=== PATIENT | male | born 1970 | race Caucasian/White ===

== ENCOUNTER 2017-02-13 15:50 | Emergency (ER) | payer OTHER ==
[~2017-02-13] VITALS: Ht 180.3 cm; Wt 90.5 kg
[2017-02-13 15:50] VITALS: BP 140/89; PULSE 67; RESP 16; TEMP 98.1; O2SAT 97
[~2017-02-13 15:50] MED LIST: ALPR.25 PO
[2017-02-13] MEDS ORDERED: SODIUM CHLOR 0.9% 1000 ML INJ 1,000 ML IV ONE (16:10)
[2017-02-13] MEDS ORDERED: SODIUM CHLORIDE 0.9% FLUSH 10 ML FLUSH IVF PRN (16:15)
[2017-02-13] MEDS ORDERED: METOCLOPRAMIDE HCL 10 MG/2 ML VIAL IVP ONE (16:15)
[2017-02-13] MEDS ORDERED: DEXAMETHASONE SOD PHOS 20 MG/5 ML VIAL IV PUSH ONE (16:15)
[2017-02-13] MEDS ORDERED: diphenhydrAMINE HCL 50 MG/ML VIAL IVP ONE (16:15)
--- NOTE | 2017-02-13 16:23 | PD ---
HPI Chief Complaint: Headache Time Seen by Provider: 15:56 Travel History International Travel<30 days: Yes Contact w/Intl Traveler<30days: Yes Name of Country Traveled to: [place] Traveled to known affect area: No History of Present Illness HPI Patient is a 46 year old male who presents to ER with complaints of headache. Patient reports that 2 days ago, he was on a cruise with his , reports that during the climax of intercourse he began to have a headache. Reports that during climax, he got diaphoretic and reports that his heart was racing, reports that it felt like his head exploded. Reports that symptoms lasted for about 15 minutes and then slowly resolved. Reports concern as he still "feels off." Patient reports that headache has nearly resolved since the episode 2 days ago. Denies vision changes. Denies n/v with symptoms. Patient currently is not on any anticoagulants at this time. Patient denies any history of intracranial hemorrhage, SAH, denies any medical history except for anxiety as well as intraocular migraines. No family history of subarachnoid hemorrhage, or intracranial hemorrhage. PFSH Past Medical History Anxiety: Yes (PTSD) Diminished Hearing: No Psychiatric: Yes (PTSD) Influenza Vaccination: No Past Surgical History Surgical History: No Previous Surgery Social History Alcohol Use: No Tobacco Use: No Substance Use: No Allergies-Medications (Allergen,Severity, Reaction): Coded Allergies: No Known Allergies (Unverified , 02/13/17) Reported Meds & Prescriptions Reported Meds & Active Scripts Active Review of Systems General / Constitutional: No: Fever Eyes: No: Visual changes HENT: No: Headaches Cardiovascular: No: Chest Pain or Discomfort Respiratory: No: Shortness of Breath Gastrointestinal: No: Abdominal Pain Genitourinary: No: Dysuria Musculoskeletal: No: Pain Skin: No Rash Neurologic: Positive: Headache, No: Weakness Psychiatric: No: Depression Endocrine: No: Polydipsia Hematologic/Lymphatic: No: Easy Bruising Physical Exam Narrative GENERAL: No acute distress, nontoxic SKIN: Focused skin assessment warm/dry. HEAD: Atraumatic. Normocephalic. EYES: Pupils equal and round. No scleral icterus. No injection or drainage. ENT: No nasal bleeding or discharge. Mucous membranes pink and moist. NECK: Trachea midline. No JVD. CARDIOVASCULAR: Regular rate and rhythm. No murmur appreciated. RESPIRATORY: No accessory muscle use. Clear to auscultation. Breath sounds equal bilaterally. GASTROINTESTINAL: Abdomen soft, non-tender, nondistended. Hepatic and splenic margins not palpable. MUSCULOSKELETAL: No obvious deformities. No clubbing. No cyanosis. No edema. NEUROLOGICAL: Awake and alert. No obvious cranial nerve deficits. Motor grossly within normal limits. Normal speech. Cranial nerves 2- 12 grossly intact with no neurological deficits PSYCHIATRIC: Appropriate mood and affect; insight and judgment normal. Data Data Last Documented VS Vital Signs Date Time Temp Pulse Resp B/P Pulse Ox O2 Delivery O2 Flow Rate FiO2 02/13/17 19:04 20 98 02/13/17 19:02 68 154/83 02/13/17 18:29 Room Air 02/13/17 15:50 98.1 Orders Complete Blood Count With Diff (02/13/17 16:10) Comprehensive Metabolic Panel (02/13/17 16:10) Prothrombin Time / Inr (Pt) (02/13/17 16:10) Act Partial Throm Time (Ptt) (02/13/17 16:10) Ct Brain W/O Iv Contrast(Rout) (02/13/17 16:10) Ecg Monitoring (02/13/17 16:10) Iv Access Insert/Monitor (02/13/17 16:10) Oximetry (02/13/17 16:10) Sodium Chloride 0.9% Flush (Ns Flush) (02/13/17 16:15) Sodium Chlor 0.9% 1000 Ml Inj (Ns 1000 M (02/13/17 16:10) Diphenhydramine Inj (Benadryl Inj) (02/13/17 16:15) Metoclopramide Inj (Reglan Inj) (02/13/17 16:15) Dexamethasone Inj (Decadron Inj) (02/13/17 16:15) Cta Brain W Iv Contrast W 3d (02/13/17 17:16) Cta Neck W Iv Contrast W 3d (02/13/17 17:16) Iohexol 350 Inj (Omnipaque 350 Inj) (02/13/17 17:48) Labs Laboratory Tests Test 02/13/17 16:20 White Blood Count 8.7 TH/MM3 Red Blood Count 5.79 MIL/MM3 Hemoglobin 16.8 GM/DL Hematocrit 48.5 % Mean Corpuscular Volume 83.7 FL Mean Corpuscular Hemoglobin 28.9 PG Mean Corpuscular Hemoglobin 34.6 % Concent Red Cell Distribution Width 12.4 % Platelet Count 248 TH/MM3 Mean Platelet Volume 7.3 FL Neutrophils (%) (Auto) 47.1 % Lymphocytes (%) (Auto) 41.7 % Monocytes (%) (Auto) 7.5 % Eosinophils (%) (Auto) 3.1 % Basophils (%) (Auto) 0.6 % Neutrophils # (Auto) 4.0 TH/MM3 Lymphocytes # (Auto) 3.6 TH/MM3 Monocytes # (Auto) 0.7 TH/MM3 Eosinophils # (Auto) 0.3 TH/MM3 Basophils # (Auto) 0.1 TH/MM3 CBC Comment DIFF FINAL Differential Comment Prothrombin Time 10.7 SEC Prothromb Time International 1.0 RATIO Ratio Activated Partial 27.3 SEC Thromboplast Time Sodium Level 140 MEQ/L Potassium Level 3.6 MEQ/L Chloride Level 104 MEQ/L Carbon Dioxide Level 29.1 MEQ/L Anion Gap 7 MEQ/L Blood Urea Nitrogen 15 MG/DL Creatinine 1.00 MG/DL Estimat Glomerular Filtration 81 ML/MIN Rate Random Glucose 119 MG/DL Calcium Level 9.3 MG/DL Total Bilirubin 0.5 MG/DL Aspartate Amino Transf 18 U/L (AST/SGOT) Alanine Aminotransferase 26 U/L (ALT/SGPT) Alkaline Phosphatase 92 U/L Total Protein 7.4 GM/DL Albumin 3.9 GM/DL [facility] Medical Decision Making Medical Screen Exam Complete: Yes Emergency Medical Condition: Yes Interpretation(s) Vital Signs Date Time Temp Pulse Resp B/P Pulse Ox O2 Delivery O2 Flow Rate FiO2 02/13/17 15:50 98.1 67 16 140/89 97 Differential Diagnosis Differential includes intracranial hemorrhage, migraine headache, cephalgia, electrolyte abnormality Narrative Course Patient is a 46-year-old male who presents to emergency room with complaints of headache. Reports that he had acute onset severe headache 2 days ago while climaxing during sexual intercourse. Patient reports that symptoms lasted 15 minutes and has improved, patient was told to go directly to the emergency room after he got [place] the cruise ship for evaluation. Patient with no neurological deficits at this time, patient is well-appearing. Patient with severe headache 2 days ago, CT head ordered to rule out intracranial hemorrhage. Vital Signs Date Time Temp Pulse Resp B/P Pulse Ox O2 Delivery O2 Flow Rate FiO2 7//17 19:04 20 98 02/13/17 19:02 68 20 154/83 97 02/13/17 18:29 64 18 144/74 95 Room Air 02/13/17 17:05 64 18 146/82 98 Room Air 02/13/17 16:24 18 98 Room Air 02/13/17 15:50 98.1 67 16 140/89 97 CBC & BMP Diagram 02/13/17 16:20 Last Impressions Head CTA 02/13/17 1716 Signed Impressions: Service Date/Time: February 17:28 - CONCLUSION: Stenotic right A1 segment with symmetric appearance to the A2 segments with patent intercommunicating artery. No aneurysm seen. Ever Denton MD Head CT 02/13/17 1610 Signed Impressions: Service Date/Time: February 16:22 - CONCLUSION: Normal examination for a patient of this age. Kunal Chan MD CTA of the neck: Moderate short segment narrowing of the origin of the left internal carotid artery with poststenotic dilation. The stenosis is calculated at 43%. Patient with no aneurysm is on CTs, he does have a narrowing of his left carotid artery. Copies of patient's CT report was given to him. Patient will follow-up with his primary care doctor and bring the copies of the CT report with him. Signs and symptoms of when to return to the emergency room was reviewed patient in detail. Diagnosis Primary Impression: Headache Qualified Code: R51 - Acute nonintractable headache, unspecified headache type Additional Impression: Internal carotid artery stenosis Patient Instructions: General Instructions Additional Instructions: Please follow up with your primary care doctor Please bring your radiology reports to your doctor's office for follow up on all findings Return to ER if symptoms worsen or progress Return to ER as needed Please bring the copy of your radiology reports to your doctor's office as you will need to have follow up on all incidental findings from today Disposition: 01 DISCHARGE HOME Condition: Stable Kimi Mendez DO Feb 13, 2017 16:23
[2017-02-13 16:24] VITALS: RESP 18; O2SAT 98
--- NOTE | 2017-02-13 16:41 | RADRPT ---
EXAM DATE/TIME: 02/13/2017 16:22 [facility] COMPARISON: No previous studies available for comparison. INDICATIONS : Cephalgia. RADIATION DOSE: 66.33 CTDIvol (mGy) MEDICAL HISTORY : None SURGICAL HISTORY : None. ENCOUNTER: Initial ACUITY: 2 days PAIN SCALE: 6/10 LOCATION: cranial TECHNIQUE: Multiple contiguous axial images were obtained of the head. Using automated exposure control and adj ustment of the mA and/or kV according to patient size, radiation dose was kept as low as reasonably a chievable to obtain optimal diagnostic quality images. DICOM format image data is available electro nically for review and comparison. FINDINGS: CEREBRUM: The ventricles are normal for age. No evidence of midline shift, mass lesion, hemorrhage or acute in farction. No extra-axial fluid collections are seen. POSTERIOR FOSSA: The cerebellum and brainstem are intact. The 4th ventricle is midline. The cerebellopontine angle i s unremarkable. EXTRACRANIAL: The visualized portion of the orbits is intact. SKULL: The calvaria is intact. No evidence of skull fracture. CONCLUSION: Normal examination for a patient of this age. Kunal Chan MD on February 13, 2017 at 16:38 Board Certified Radiologist. This report was verified electronically.
[2017-02-13 16:49] LABS: BASOPHIL # 0.1 TH/MM3 (0-0.2); BASOPHIL % 0.6 % (0.0-2.0); EOSINOPHIL # 0.3 TH/MM3 (0-0.4); EOSINOPHIL % 3.1 % (0.0-4.0); HEMATOCRIT 48.5 % (39.0-51.0); HEMO FLAGS DIFF FINAL; LYMPH % 41.7 % (9.0-44.0); LYMPHOCYTE # 3.6 TH/MM3 (1.0-4.8); MEAN CELL VOLUME 83.7 FL (80.0-100.0); MEAN CORPUSCULAR HEMOGLOBIN 28.9 PG (27.0-34.0); MEAN CORPUSCULAR HGB CONC 34.6 % (32.0-36.0); MONO % 7.5 % (0.0-8.0); NEUT % 47.1 % (16.0-70.0); PLATELET COUNT 248 TH/MM3 (150-450); RED BLOOD COUNT 5.79 MIL/MM3 (4.50-5.90); RED CELL DISTRIBUTION WIDTH 12.4 % (11.6-17.2); WHITE BLOOD COUNT 8.7 TH/MM3 (4.0-11.0)
[2017-02-13 16:50] LABS: CHLORIDE 104 MEQ/L (98-107); POTASSIUM 3.6 MEQ/L (3.5-5.1); SODIUM (NA) 140 MEQ/L (136-145)
[2017-02-13 16:54] LABS: ANION GAP 7 MEQ/L (5-15); BICARBONATE 29.1 MEQ/L (21.0-32.0); BLOOD UREA NITROGEN 15 MG/DL (7-18)
[2017-02-13 16:57] LABS: ALT (GPT) 26 U/L (12-78); AST (GOT) 18 U/L (15-37); GLOMERULAR FILTRATION RATE 81 ML/MIN (>89)
[2017-02-13 16:59] LABS: APTT (PATIENT) 27.3 SEC (24.3-30.1); PROTHROMBIN TIME - PATIENT 10.7 SEC (9.8-11.6); TOTAL BILIRUBIN ADULT 0.5 MG/DL (0.2-1.0)
[2017-02-13 17:00] LABS: ALKALINE PHOSPHATASE 92 U/L (45-117)
[2017-02-13 17:05] VITALS: BP 146/82; PULSE 64; RESP 18; O2SAT 98
[2017-02-13] MEDS ORDERED: IOHEXOL 350 MG/ML 10 ML VIAL (for RAD DIAG) IV ONE (17:48)
[2017-02-13 18:29] VITALS: BP 144/74; PULSE 64; RESP 18; O2SAT 95
[2017-02-13 19:02] VITALS: BP 154/83; PULSE 68; RESP 20; O2SAT 97
--- NOTE | 2017-02-13 19:16 | RADRPT ---
EXAM DATE/TIME: 02/13/2017 17:28 [facility] COMPARISON: No previous studies available for comparison. INDICATIONS : Cephalgia. Evaluate for aneurysm. IV CONTRAST: 85 cc Omnipaque 350 (iohexol) IV ; Cumulative dose for multiple exams. RADIATION DOSE: 42.25 CTDIvol (mGy) ; Combined studies MEDICAL HISTORY : None SURGICAL HISTORY : None. ENCOUNTER: Initial ACUITY: 2 days PAIN SCALE: 6/10 LOCATION: cranial TECHNIQUE: Volumetric scanning was performed using a multi-row detector CT scanner. The data was post processed with a variety of visualization algorithms including full volume maximum intensity projection, multi -planar sliding thin slab reformation, curved planar reformation, and surface rendering techniques. Using automated exposure control and adjustment of the mA and/or kV according to patient size, radiat ion dose was kept as low as reasonably achievable to obtain optimal diagnostic quality images. DICO M format image data is available electronically for review and comparison. FINDINGS: There is excellent visualization of the intracranial vessels. The internal carotid arteries are symm etric in size. The right A1 segment is narrowed, but flow is seen within. There is good flow in the anterior communicating artery. The A2 segments are symmetric. Middle cerebral artery branch vessel s are symmetric. The posterior circulation is intact. No evidence of aneurysm or vessel truncation. No flow is seen in either PCOM. CONCLUSION: Stenotic right A1 segment with symmetric appearance to the A2 segments with patent intercommunicating artery. No aneurysm seen. Ever Denton MD on February 13, 2017 at 19:04 Board Certified Radiologist. This report was verified electronically.
--- NOTE | 2017-02-13 19:20 | RADRPT ---
EXAM DATE/TIME: 02/13/2017 17:28 [facility] COMPARISON: No previous studies available for comparison. INDICATIONS : Cephalgia. Evaluate for aneurysm. IV CONTRAST: 85 cc Omnipaque 350 (iohexol) IV ; Cumulative dose for multiple exams. RADIATION DOSE: 42.25 CTDIvol (mGy) ; Combined studies MEDICAL HISTORY : None SURGICAL HISTORY : None. ENCOUNTER: Initial ACUITY: 2 days PAIN SCALE: 6/10 LOCATION: neck Elevated flow velocities and ICA/CCA ratios have been found to correlate with increased degrees of vessel stenosis, calculated as percentage of diameter relative to a normal segment of distal ICA/CCA. TECHNIQUE: Volumetric scanning was performed using a multirow detector CT scanner. The data was post processed with a variety of visualization algorithms including full-volume maximum intensity projection, multip lanar sliding thin-slab reformation, curved-planar reformation, and surface-rendering techniques. Us ing automated exposure control and adjustment of the mA and/or kV according to patient size, radiatio n dose was kept as low as reasonably achievable to obtain optimal diagnostic quality images. DICOM f ormat image data is available electronically for review and comparison. FINDINGS: AORTIC ARCH: Bovine configuration to the aortic arch. No significant stenosis of the origin of the great vessels. RIGHT CAROTID: The common carotid artery is intact. The carotid bulb has a normal configuration without ulceration o r narrowing. The internal carotid artery lumen is smooth without stenosis. The external carotid joann ry is intact. LEFT CAROTID: The common carotid artery is intact. There is a focal short segment narrowing of the origin of the i nternal carotid artery with delayed degree of stenosis calculated at 43%. There is some poststenotic dilatation. The internal carotid artery lumen is smooth without stenosis. The external carotid art xena is intact. VERTEBRALS: The vertebral arteries have a symmetric diameter. No stenotic lesions are seen. CONCLUSION: Moderate short segment narrowing of the origin of the left internal carotid artery with poststenotic dilatation. The stenosis is calculated at 43%. Ever Denton MD on February 13, 2017 at 19:13 Board Certified Radiologist. This report was verified electronically.
== END 2017-02-13 19:43 | disposition home or self-care (01) ==
LOC: PHED 15:50
DX: R51 Headache (principal); I65.22 Occlusion and stenosis of left carotid artery; F43.10 Post-traumatic stress disorder, unspecified
CPT/HCPCS: 70450; 70496; 70498; 80053; 85025; 85610; 85730; 96360; 99285; J7030; Q9967